=== PATIENT | female | born 1950 | race Caucasian/White ===

== ENCOUNTER 2025-03-16 11:33 | Observation (INO) | payer MEDICARE, OTHER ==
--- NOTE | 2025-03-09 11:19 | ELECTROCARDIOGRAPH REPORT ---
[facility] Test Date: 2025-03-09 Test Time: 11:17:54 Pat Name: DONALD COLINDRES Department: [facility]-PRE-OP Patient ID: [facility]-[id number] Room: Gender: F Vocational Adviser: ROHIT : 1950 Requested By: NORMA OCHOA Order Number: [id number] Reading MD: Dr. ARABELLA Sparks Measurements Intervals [place] Rate: 72 P: 65 NC: 173 QRS: 24 QRSD: 89 T: 32 QT: 416 QTc: 456 Interpretive Statements Sinus rhythm Atrial premature complex Low voltage, precordial leads Electronically Signed On 03-09-2025 18:43:[address] ARABELLA Sparks Please click the below link to view image of tracing.
[2025-03-09 11:27] LABS: MEAN PLATELET VOLUME 8.0 FL (7.4-10.4); PRE OP HEMATOCRIT 33.8 % (35.0-45.0); PRE OP HEMOGLOBIN 11.1 g/dL (12.0-16.0); PRE OP PLATELET COUNT 188 X10'3 (140-440); PRE OP WHITE BLOOD COUNT 4.6 10'3 (4.8-10.8); RED CELL DISTRIBUTION WIDTH 16.1 % (11.5-14.5)
[2025-03-09 11:41] LABS: CREATININE 0.80 MG/DL (0.40-0.90); PRE OP ALT 11 U/L (30-65); PRE OP ANION GAP 12 (8-16); PRE OP AST 26 U/L (10-37); PRE OP BILIRUB, TOTAL 1.3 MG/DL (0.0-1.0); PRE OP GLUCOSE 78 MG/DL (70-104); PRE OP POTASSIUM 3.6 MMOL/L (3.4-5.1); PRE OP SODIUM 138 MMOL/L (135-145); TOTAL CARBON DIOXIDE 20.0 MMOL/L (24-32); eGFR 70 ML/MIN
[~2025-03-16] VITALS: Ht 154.9 cm; Wt 93.5 kg
[2025-03-16] VITALS (22 sets, daily range): BP systolic 107–187; BP diastolic 53–99; PULSE 68–88; RESP 12–19; TEMP 97.9–98.3; O2SAT 92–100
[~2025-03-16 11:33] MED LIST: ATOR40TA72 PO; BUPIVAcaine/PF 2.5mg/ml (0.25%) 10ml vial ONE; CLOP75TA34 PO; LEVO137T2 PO; LIDOcaine 1% 30ml preserv. free vial ONE; LISI20TA28 PO; PIOG30TA71 PO; TIRZ15PE SQ
[2025-03-16] MEDS: clindamycin-Cleocin 900mg/D5W 50 ML IV ONE (12:28)
[2025-03-16] MEDS: ringers solution, lacted 1,000 ML IV SCH ×2 (12:30→13:55)
[2025-03-16] MEDS ORDERED: BUPIVACAINE liposomal/PF 13.3 MG/ML 10mL vial IM ONE (13:12)
[2025-03-16] MEDS ORDERED: labetalol 20mg/4ml (5mg/ml) syringe IV PRN (13:55)
[2025-03-16] MEDS ORDERED: hydrALAZINE 20mg/ml inj. IV PRN (13:55)
[2025-03-16] MEDS ORDERED: fentaNYL/PF 50MCG/1 ML 2ML syringe IV PRN (13:55)
[2025-03-16] MEDS ORDERED: ondansetron/PF 4mg/2ml inj IV PRN ×2 (13:55→18:10)
[2025-03-16] MEDS ORDERED: BUPIVAcaine/PF 2.5mg/ml (0.25%) 10ml vial ONE (14:41)
[2025-03-16] MEDS ORDERED: dexamethasone sod phosphate 4mg/ml inj. ONE (14:45)
[2025-03-16] MEDS ORDERED: midazolam 1 mg/ML 2ml injection ONE (14:50)
[2025-03-16] MEDS ORDERED: fentaNYL/PF 50MCG/1 ML 2ML syringe ONE (14:50)
[2025-03-16] MEDS ORDERED: LIDOcaine 1%/PF 5ML 10 MG/ML VIAL ONE (14:52)
[2025-03-16] MEDS ORDERED: propofol inj 20 ML IV ONE (14:52)
[2025-03-16] MEDS ORDERED: ondansetron/PF 4mg/2ml inj ONE (14:52)
[2025-03-16] MEDS ORDERED: rocuronium 10mg/ml inj IV ONE ×2 (14:52→15:51)
[2025-03-16] MEDS: morphine 4 MG/ML inj SYRINge IV PRN (16:55)
[2025-03-16] MEDS: fentaNYL/PF 50MCG/1 ML 2ML syringe IV PRN (17:14)
--- NOTE | 2025-03-16 17:17 | OPERATIVE REPORT ---
Operative Report Providers to CC CC: BRAULIO OCHOA MD ~ Date of Procedure: Mar 16, 2025 Pre-Operative Diagnosis: Ventral hernia Post-Operative Diagnosis 6 cm ventral hernia 2 cm umbilical hernia Procedure Performed Robotic assisted, laparoscopic 8 cm ventral hernia repair with mesh (combined 6 and 2 cm hernias respectively) Bilateral transversus abdominis plane nerve blocks by injection using 266 mg of Exparel Surgeon: Braulio Ochoa MD FACS [employer] None Anesthesiologist: Darrian Bull Type of Anesthesia: General Findings: Large, 6 cm ventral hernia with very very large associated hernia sac 2 cm primary umbilical hernia was smaller hernia sac Wound class I Complications None Prosthetics\Implants used: 15 cm diameter coated polyester mesh Estimated Blood Loss: Minimal Specimen Removed: None Description of Procedure: Patient was brought to the operating room and identified by the nursing staff and the attending physician. Patient was placed supine and a general anesthesia was induced. Preoperative antibiotics were given. The abdomen was prepped and draped in the standard sterile fashion. Through a left subcostal stab incision the abdomen was accessed with a Veress needle technique. Abdomen was insufflated without incident. The incision was lengthened to accommodate a 12 mm optical trocar and the abdomen was entered under laparoscopic visualization. The abdomen was surveyed laparoscopically. Omentum and small bowel were tented up to the anterior abdominal wall and herniated through a very large fascial defect. There was also an obvious umbilical hernia defect. I was able to reduce the intestine out of a very large hernia sac and the epigastrium. Under laparoscopic visualization, robotic trochars were placed in the left lateral and left lower quadrant. The da Jone robotic arm was docked to the patient and instruments guided intra-abdominally under laparoscopic visualization. Adhesions between omentum and transverse colon were taken down from the anterior abdominal wall exposing a 6 cm fascial defect in the midepigastrium. Falciform ligament was mobilized superiorly. At the umbilicus, there was a 2 cm fascial defect. Fascial defect(s) were then reapproximated with running, nonabsorbable, 0V lock suture. Good fascial apposition was obtained without significant tension. A coated polyester mesh was then fixed to the anterior abdominal wall with running, absorbable, 2/0, V lock suture. Mesh laid without wrinkles or folds. The mesh measured 15 cm in diameter and was centered at the larger defect but there was overlap of the umbilical repair. The da Jone instruments were then removed and the robot undocked from the patient. Bilateral transversus abdominis plane nerve blocks by injection were then placed under laparoscopic visualization using a combination of Marcaine and 266 mg of Exparel. Absorbable tacking device was then used to completely flattened the hernia mesh against the anterior abdominal wall. Fifteen tacks were used. The left subcostal trocar was removed and its fascia closed percutaneously with 0 Vicryl suture under laparoscopic visualization. Remaining trochars were removed after the abdomen was allowed to deflate. Skin was closed at all sites with 4-0 Monocryl sutures and dressed with sterile dressings. Patient was awakened and taken to the postanesthesia care unit in stable condition. Counts repoted as correct: Yes BRAULIO OCHOA MD Mar 16, 2025 17:17
[2025-03-16] MEDS: normal saline 1000ml 1,000 ML IV SCH (18:10)
[2025-03-16] MEDS: potassium CL 20mEq in D5-1/2NS 1,000 ML IV SCH (18:59)
[2025-03-16] MEDS: HYDROmorph/NS 0.2 mg/ml PCA 100 ML IV SCH (19:00)
[2025-03-16] MEDS: docusate sod 100mg capsule PO SCH (23:21)
[2025-03-16] MEDS: heparin, porcine 5000 units/ml vial SQ SCH (23:22)
[2025-03-17 06:39] VITALS: BP 117/54; PULSE 67; RESP 19; TEMP 96.6; O2SAT 99
[2025-03-17] MEDS: levoTHYROXINE 112mcg tablet PO SCH (07:56)
[2025-03-17] MEDS: levoTHYROXINE 25mcg tablet PO SCH (07:56)
[2025-03-17 07:58] VITALS: BP_SYST 117; PULSE 67
[2025-03-17 10:09] VITALS: RESP 16; O2SAT 96
[2025-03-17] MEDS: PCA WASTE DOCUMENTATION 1 MG ML MC SCH (14:38)
[2025-03-17] MEDS ORDERED: PER5325T PO (15:34)
--- NOTE | 2025-03-17 15:36 | DISCHARGE SUMMARY ---
Discharge Summary Providers to CC CC: BRAULIO OCHOA MD ~ Discharge Summary Admission Diagnosis: Ventral hernia Admission Diagnosis Comment: Ventral hernia Umbilical hernia Hospital Course DATE OF ADMISSION: March 16, 2025 DATE OF DISCHARGE: March 17, 2025 Discharge Diagnosis\Comment: Ventral and umbilical hernias totaling 8 cm Operations\Procedures: Robotic assisted, laparoscopic ventral and umbilical hernia repair (8 cm) with the mesh Bilateral transversus abdominis plane nerve blocks by injection Consultants: Braulio Ochoa MD FACS Complications: None Condition on DC: Stable New Medications: Oxycodone Hcl/Acetaminophen 5/325 MG* (Percocet 5/325 MG*) 5 Mg/325 Mg Tablet 1 TAB PO Q4H PRN for moderate or severe pain 4-10 for 5 Days, #30 TAB Continued Medications: Atorvastatin Calcium (Atorvastatin Calcium) 40 Mg Tablet 1 TAB PO DAILY Clopidogrel Bisulfate (Clopidogrel) 75 Mg Tablet 1 TAB PO DAILY Levothyroxine Sodium (Levothyroxine Sodium) 137 Mcg Tablet 1 TAB PO QAM Lisinopril (Lisinopril) 20 Mg Tablet 1 TAB PO DAILY Pioglitazone Hcl (Pioglitazone Hcl) 30 Mg Tablet 1 TAB PO DAILY Tirzepatide (Mounjaro) 15 Mg/0.5 Ml Pen.injctr 15 MG SQ Q7D Discharge Summary: Patient was admitted following robotic assisted, laparoscopic mesh repair of ventral and umbilical hernias. She had no safe discharge as nobody was at home to stay with her the 1st night after general anesthesia. She was observed overnight and provided IV pain control. Diet was advanced and she was switched to oral pain medications on postoperative day one and deemed ready for discharge home. *Problems/Diagnosis: (1) Ventral hernia Total Time Spent on D/C: Up to 30 Minutes Counseling Services Smoking & Tobacco Cessation: N/A BRAULIO OCHOA MD Mar 17, 2025 15:36
[2025-03-17 16:30] VITALS: RESP 18
[2025-03-17] MEDS: oxyCODONE/APAP 5-325mg tablet PO PRN (16:30)
== END 2025-03-17 16:49 | disposition home or self-care (01) ==
LOC: PAS 11:33 → UNDOADMIN 18:11 → SUR 3N 18:11 → UNDODISIN 03-17 16:49
PROVIDERS: ADMIT Surgery; ATTEND Surgery
DX: K43.9 Ventral hernia without obstruction or gangrene (principal); K42.9 Umbilical hernia without obstruction or gangrene; E78.5 Hyperlipidemia, unspecified; E11.9 Type 2 diabetes mellitus without complications; I10 Essential (primary) hypertension; E03.9 Hypothyroidism, unspecified; E66.9 Obesity, unspecified; Z79.899 Other long term (current) drug therapy; Z98.890 Other specified postprocedural states
CPT/HCPCS: 49593; 80053; 82948; 93005; 96365; 96372; 96375; A4215; A4615; A4618; C1713; C1781; G0378; J0666; J1171; J3480; J3490; J7120; 36415; 85025; 87081; A6258; A6449; J1100; J1644; J2003; J2250; J2270; J2405; J2704; J3010